=== PATIENT | male | born 1960 | race Caucasian/White ===

== ENCOUNTER 2016-03-18 08:44 | Inpatient (IN) ==
[2016-03-18] MEDS ORDERED: Ipratropium/Albuterol Neb 3 ML ONE (09:02)
[2016-03-18] MEDS ORDERED: 0.9 % Sodium Chloride 1,000 ML IVC ONE (09:04)
[2016-03-18] MEDS ORDERED: methylPREDNISolone 125 MG/2 ML VIAL IVP ONE (09:04)
[2016-03-18] MEDS ORDERED: Famotidine 20 MG/2 ML VIAL IVP ONE (09:04)
[2016-03-18] MEDS ORDERED: *HR* EPINEPHrine 1 MG/ML AMPUL IM ONE (09:04)
--- NOTE | 2016-03-18 09:13 | Emergency Department Note ---
Disposition Clinical Impression: Acute kidney injury Angioedema Qualifiers: Encounter type: initial encounter Qualified Code(s): T78.3XXA - Angioneurotic edema, initial encounter Disposition: Admitted As Inpatient Condition: Fair Referrals: NO,PCP [Non-Partnered Physician] - Forms: ED Satisfaction Letter Time of Disposition: 10:46 Allergic Reaction HPI - General Chief complaint: ED Allergic Reaction Stated complaint: Allergic reaction, red / swelling Time Seen by Provider: 03/18/16 08:49 Source: patient Mode of arrival: ambulatory Limitations: no limitations Nursing Notes Reviewed: Yes Vital Signs Reviewed: Yes - History of Present Illness HPI Narrative: 55-year-old male presents to emergency department for a chief complaint of a "allergic reaction". He states that 5 days ago, he noticed a vague and diffuse rash that was pruritic in nature. He states this rash rest and severity quickly. He visited his [facility] provider on 03/16/16 and was prescribed a prednisone taper as well as Keflex for an unknown reason. He states he has had only modest improvement in the rash itself, however now he states that his lips are swelling, as well as he is experiencing intermittent episodes of shortness of breath. He denies any chest pain or fevers. He does admit to being slightly nauseated. He denies any abdominal pain, vomiting, diarrhea. He denies the introduction of any new medications other than the steroid in the Keflex that was given 2 days ago. He denies the ingestion of any new or foreign foods. He denies the use of any new detergents, clothes, fabric softeners, etc. He denies introduction of any new household pets. He denies any recent foreign travel. He states that when the rash first appeared, he had profuse swelling of his extremities, primarily his hands. He states this has somewhat improved, although he still appears edematous upon exam. Pt Subjective Complaint: allergic reaction, hives Onset (ago): day(s) (5) Exposure: unknown Symptoms: Reports: rash, itching, difficulty breathing, dizziness, nausea, other (lips swelling). Denies: difficulty swallowing, tongue swelling, vomiting , abdominal pain Severity: moderate Treatment prior to arrival: steroids Previous Allergic Reaction History: none - Related Data Home Medications Medication Instructions Recorded Confirmed Aspirin 81 mg PO DAILY 03/18/16 03/18/16 Atorvastatin 20 mg PO DAILY 03/18/16 03/18/16 Buspirone HCl 15 mg PO DAILY 03/18/16 03/18/16 Centrum Ultra Men's Tablet 1 tab PO DAILY 03/18/16 03/18/16 Finasteride 5 mg PO DAILY 03/18/16 03/18/16 Lisinopril-HCTZ 20-12.5 2 tab PO DAILY 03/18/16 03/18/16 Metamucil 6 tab PO DAILY 03/18/16 03/18/16 Paroxetine 25 mg PO BID 03/18/16 03/18/16 Pramipexole 25 mg PO DAILY 03/18/16 03/18/16 Prilosec Otc 20.6 mg PO DAILY 03/18/16 03/18/16 Tamsulosin HCl 0.4 mg PO DAILY 03/18/16 03/18/16 Allergies Allergy/AdvReac Type Severity Reaction Status Date / Time No Known Allergies Allergy Verified 03/18/16 10:52 All systems ED: reviewed and negative except as stated. Constitutional: Denies: fever, chills, weakness, weight change Cardiovascular: Denies: chest pain, palpitations, dyspnea on exertion, edema, syncope Respiratory: Reports: as per HPI, dyspnea. Denies: cough, wheezes, hemoptysis, stridor, sputum production Gastrointestinal: Reports: as per HPI, nausea. Denies: abdominal pain, vomiting , diarrhea, constipation, hematemesis, melena, hematochezia Musculoskeletal: Denies: back pain, neck pain, arthralgia, myalgia Integumentary: Reports: as per HPI, rash. Denies: abrasion, lesions, change in hair/nails, pruritus, breast mass, nipple discharge Neurological: Denies: headache, weakness, numbness, paresthesias, confusion, abnormal gait, vertigo Psychiatric: Denies: anxiety, depression, suicidal thoughts, homicidal thoughts , auditory hallucinations, visual hallucinations Endocrine: Denies: fatigue Hematological/Lymphatic: Denies: easy bleeding, easy bruising Allergic/Immunologic: Reports: as per HPI, urticaria Past Medical History - Past Medical History Attestation: Yes The following information was validated with the patient. Source: patient Medical history: Reports: GERD Psychiatric history: Reports: depression - Social History Smoking Status: Never smoker Smokeless Tobacco Status: No Alcohol use: Reports: rarely Drug use: Reports: none Physical Exam - General Limitations: no limitations General appearance: alert - Head Head exam: atraumatic, normocephalic, normal inspection - Eye Eye exam: Present: normal appearance, PERRL, EOMI. Absent: nystagmus - ENT ENT exam: mucous membranes moist - Expanded ENT Exam Mouth exam: Present: lip swelling, tounge swelling. Absent: drooling, trismus Throat exam: Present: normal inspection. Absent: tonsillomegaly, muffled voice - Neck Neck exam: Present: normal inspection, full ROM, trachea midline. Absent: lymphadenopathy - Chest Chest inspection: Present: normal inspection, symmetric chest wall rise, rash ( See below) - Respiratory Respiratory exam: Present: normal lung sounds bilaterally. Absent: respiratory distress, wheezes, stridor, accessory muscle use, prolonged expiratory phase - Cardiovascular Cardiovascular exam: Present: regular rate, normal rhythm, normal heart sounds - Abdominal Exam Abdominal exam: Present: soft, Non-Tender, normal bowel sounds. Absent: tenderness, distention, guarding, rebound, rigidity - Extremities Exam Extremities exam: Present: normal inspection, full ROM. Absent: tenderness, pedal edema - Neurological Exam Neurological exam: Present: alert, oriented X3 - Psychiatric Psychiatric exam: Present: normal affect, normal mood - Skin Skin exam: Present: warm, dry, intact, normal color, rash. Absent: cyanosis, diaphoresis, erythema, pallor, mottled - Expanded Skin Exam Type of lesion: Present: rash Distribution: generalized (Generalized rash that is maculopapular/urticarial in nature. The rash is erythematous. There is no sloughing. There is no vesicles. The rash spares the palms of the hands and the oral/buccal mucosa. ) Course Course Narrative: We will administer IV fluids, IM epinephrine, breathing treatment, IV Solu- Medrol, IV Benadryl, IV Pepcid, and reevaluate. I discussed this patient's case with Dr. Trammell. Dr. Wilson recommends admission to the hospitalist service after consultation with nephrology for acute kidney injury and angioedema. 1016: I spoke with Dr. Ernst, nephrology on-call. He recommends a urinalysis, urine eosinophils, and renal ultrasound. 1030: At this time, I am awaiting a callback from the hospitalist for probable admission to the hospitalist service. I have discussed this plan with the patient and the patient is in agreement. - Reevaluation(s) Reevaluation #1: Patient is resting in bed comfortably at this time. The patient states that he has had a moderate improvement in symptoms after the administration of medication. I have notified the patient is our plan to observe him for an unknown length of time to monitor for symptomatic improvement/devolution. Time: 10:04 Vital Signs Temperature 99.1 F 03/18/16 08:51 Pulse Rate 126 03/18/16 08:51 Respiratory Rate 26 03/18/16 08:51 Blood Pressure 154/134 03/18/16 08:51 O2 Sat by Pulse Oximetry 98 03/18/16 08:51 Temperature 99.1 F 03/18/16 08:51 Pulse Rate 115 03/18/16 10:40 Respiratory Rate 18 03/18/16 10:40 Blood Pressure 119/96 03/18/16 10:40 O2 Sat by Pulse Oximetry 99 03/18/16 10:40 Oxygen Delivery Oxygen Delivery Nasal Cannula Allergic Reaction - MDM Narrative Medical decision making narrative: I examined this patient and my medical decision-making was reviewed with the BEHAVIORAL HEALTH TECHNICIAN/PA/Advanced Practice Nurse/Resident Physician. I agree with the documented findings, disposition and treatment plan as described except to the extent set forth below. Patient was evaluated mid-level could Ryan and myself. I agree with his evaluation plans were placed in the patient's stay. Patient' s been evaluated scrubs allergic reaction summits bone on for more than 2 weeks he said denies any medicines contacts or chemicals. During his workup here he is feeling better after getting steroids and antihistamines. On noting his labs renal insufficiency elevated white count we do not have the differential back at work to speak with nephrology and think we will bring him in the hospital with some counseling. Impressions allergic reaction uncertain etiology leukocytosis and acute renal insufficiency. 1000 hrs.: Spoke with nephrology they are agreeing to see him. Asked to get a urinalysis urine eosinophils and ultrasound the kidneys. Patient's screening to admission. We also found out the patient is on blood pressure medicines RAYSHAWN inhibitor and hydrochlorothiazide so that may be one of the reasons for this also. - Medical Records Medical records reviewed: Yes I reviewed the patient's medical records. - Lab Data Lab results reviewed: Yes I reviewed the patient's lab results. Lab results narrative: Laboratory Last Values WBC 21.9 K/mcL (4.3-11.1) H 03/18/16 09:30 RBC 4.89 M/mcL (4.19-5.50) 03/18/16 09:30 Hgb 14.2 g/dL (12.9-16.9) 03/18/16 09:30 Hct 42.8 % (37.5-50.1) 03/18/16 09:30 MCV 87.5 fL (83.0-100.0) 03/18/16 09:30 MCH 29.0 pg (28.0-33.3) 03/18/16 09:30 MCHC 33.2 g/dL (31.6-35.5) 03/18/16 09:30 RDW 14.6 % (11.5-14.5) H 03/18/16 09:30 Plt Count 314 K/mcL (140-400) 03/18/16 09:30 MPV 10.0 fL (9.4-12.4) 03/18/16 09:30 Immature Gran % 1.3 % (0-4) 03/18/16 09:30 Seg Neutrophils % 45.3 % 03/18/16 09:30 Lymphocytes % 50.3 % 03/18/16 09:30 Monocytes % 2.6 % 03/18/16 09:30 Eosinophils % 0.3 % 03/18/16 09:30 Basophils % 0.2 % 03/18/16 09:30 Neutrophils # 9.9 K/mcL (1.6-8.9) H 03/18/16 09:30 Lymphocytes # 11.0 K/mcL (0.6-4.6) H 03/18/16 09:30 Monocytes # 0.6 K/mcL (0.0-1.3) 03/18/16 09:30 Eosinophils # 0.1 K/mcL (0.0-0.6) 03/18/16 09:30 Basophils # 0.0 K/mcL (0.0-0.2) 03/18/16 09:30 Smudge Cells Present (Not Present) A 03/18/16 09:30 Platelet Estimate Normal (Normal) 03/18/16 09:30 Immature Plt Fraction 3.5 % (1.1-6.1) 03/18/16 09:30 Sodium 131 mEq/L (136-145) L 03/18/16 09:30 Potassium 4.1 mEq/L (3.5-4.5) 03/18/16 09:30 Chloride 101 mEq/L (98-109) 03/18/16 09:30 Carbon Dioxide 15 mEq/L (19-29) L 03/18/16 09:30 BUN 40 mg/dL (8-26) H 03/18/16 09:30 Creatinine 2.56 mg/dL (0.72-1.25) H 03/18/16 09:30 Est GFR ( Amer) 32 (> 60) L 03/18/16 09:30 Est GFR (Non-Af Amer) 26 (> 60) L 03/18/16 09:30 BUN/Creatinine Ratio 16 (6-26) 03/18/16 09:30 Glucose 121 mg/dL (70-99) H 03/18/16 09:30 Calculated Osmolality 283 (280-300) 03/18/16 09:30 Calcium 8.7 mg/dL (8.6-10.8) 03/18/16 09:30 Result diagrams: 03/18/16 09:30 03/18/16 09:30 Lab Results 03/18/16 03/18/16 03/18/16 Range/Units 09:30 09:30 10:25 WBC 21.9 H (4.3-11.1) K/mcL RBC 4.89 (4.19-5.50) M/mcL Hgb 14.2 (12.9-16.9) g/dL Hct 42.8 (37.5-50.1) % MCV 87.5 (83.0-100.0) fL MCH 29.0 (28.0-33.3) pg MCHC 33.2 (31.6-35.5) g/dL RDW 14.6 H (11.5-14.5) % Plt Count 314 (140-400) K/mcL MPV 10.0 (9.4-12.4) fL Immature Gran % 1.3 (0-4) % Seg Neutrophils % 45.3 % Lymphocytes % 50.3 % Monocytes % 2.6 % Eosinophils % 0.3 % Basophils % 0.2 % Neutrophils # 9.9 H (1.6-8.9) K/mcL Lymphocytes # 11.0 H (0.6-4.6) K/mcL Monocytes # 0.6 (0.0-1.3) K/mcL Eosinophils # 0.1 (0.0-0.6) K/mcL Basophils # 0.0 (0.0-0.2) K/mcL Smudge Cells Present A (Not Present) Platelet Estimate Normal (Normal) Immature Plt Fraction 3.5 (1.1-6.1) % Sodium 131 L (136-145) mEq/L Potassium 4.1 (3.5-4.5) mEq/L Chloride 101 (98-109) mEq/L Carbon Dioxide 15 L (19-29) mEq/L BUN 40 H (8-26) mg/dL Creatinine 2.56 H (0.72-1.25) mg/dL Est GFR ( Amer) 32 L (> 60) Est GFR (Non-Af Amer) 26 L (> 60) BUN/Creatinine Ratio 16 (6-26) Glucose 121 H (70-99) mg/dL Calculated Osmolality 283 (280-300) Calcium 8.7 (8.6-10.8) mg/dL Urine Color Yellow (Yellow) Urine Clarity Clear (Clear) Urine pH 6.0 (5.0-8.0) pH Units Ur Specific [place] 1.020 (1.010-1.025) Urine Protein 30 H (Neg-Trace) mg/dL Urine Glucose (UA) Normal (Normal) mg/dL Urine Ketones Negative (Negative) mg/dL Urine Blood Negative (Negative) Urine Nitrite Negative (Negative) Urine Bilirubin Negative (Negative) Urine Urobilinogen Normal (Normal) mg/dL Ur Leukocyte Esterase Small H (Negative) Urine Microscopic RBC 5-15 H (0-3) per hpf Urine Microscopic WBC 5-15 H (0-3) per hpf Ur Squamous Epith Cells Many H (None-Few) per lpf Urine Bacteria None Seen (None-Few) per hpf Hyaline Casts Few (None-Few) per lpf Ur Culture Indicated? YES A (NO) - Radiology Data Radiology results reviewed: Yes I reviewed the patient's radiology results. Chest X-Ray 03/18/16 09:09 IMPRESSION: No evidence of acute disease. D/ / Richard Henson MD / Richard Henson MD Interpreting Provider: Richard Henson MD - EKG Data EKG attestation: Yes I reviewed and interpreted this EKG. EKG results narrative: EKG reviewed by Dr. Trammell as well. EKG shows a sinus tachycardia at a rate of 110 bpm with nonspecific T-wave abnormalities. No STEMI. EKG shows normal: sinus rhythm Rate: tachycardia Rhythm: NSR
[2016-03-18 09:37] LABS: Eosinophils % 0.3 %; Mean Corpuscular HGB Conc 33.2 g/dL (31.6-35.5); Red Cell Distribution Width 14.6 % (11.5-14.5)
[2016-03-18 09:44] LABS: Basophils % 0.2 %; Eosinophils # 0.1 K/mcL (0.0-0.6); Hematocrit 42.8 % (37.5-50.1); Hemoglobin 14.2 g/dL (12.9-16.9); Immature Granulocytes % 1.3 % (0-4); Immature Platelets 3.5 % (1.1-6.1); Lymphocytes % 50.3 %; Mean Corpuscular Volume 87.5 fL (83.0-100.0); Monocytes # 0.6 K/mcL (0.0-1.3); Monocytes % 2.6 %; Neutrophils # 9.9 K/mcL (1.6-8.9); Platelet Count 314 K/mcL (140-400); Red Blood Count 4.89 M/mcL (4.19-5.50); Segmented Neutrophils % 45.3 %
[2016-03-18 09:56] LABS: Calcium 8.7 mg/dL (8.6-10.8); Potassium 4.1 mEq/L (3.5-4.5)
[2016-03-18 10:10] LABS: Platelet Estimate Normal (Normal); Smudge Cells Present (Not Present)
[2016-03-18 10:43] LABS: Bilirubin,Urine Negative (Negative); Blood,Urine Negative (Negative); Clarity,Urine Clear (Clear); Color,Urine Yellow (Yellow); Glucose,Urine (UA) Normal (Normal); Ketones,Urine Negative (Negative); Leukocyte Esterase,Urine Small (Negative); Nitrite,Urine Negative (Negative); Protein,Urine 30 mg/dL (Neg-Trace); Urobilinogen,Urine Normal (Normal)
[2016-03-18 10:48] LABS: Bacteria,Urine None Seen per hpf (None-Few); Hyaline Casts,Urine Few per lpf (None-Few); Squamous Epithelial Cell,Urine Many per lpf (None-Few)
[2016-03-18] MEDS ORDERED: Acetaminophen 325 MG TABLET PO PRN (11:36)
[2016-03-18] MEDS ORDERED: Naloxone 0.4 MG/ML INJ IVP PRN (11:36)
[2016-03-18] MEDS ORDERED: 0.9 % Sodium Chloride 1,000 ML IVC SCH (11:45)
--- NOTE | 2016-03-18 13:08 | Internal Med History&Physical ---
Date of Encounter: 03/18/16 Time of Encounter: 12:00 Assessment and Plan (1) Angioedema Current visit: Yes Status: Acute 1 patient presented with sudden onset of facial and lip swelling. The patient is on RAYSHAWN inhibitor as well as Finasteride, Tamsulosin which can cause angioedema. We will hold these medications for now 2 we will give oxygen as needed to maintain SPO2 grade 92% 3 we will continue with Solu-Medrol 60 mg every 6 hours IV as well as Pepcid and Benadryl when necessary 4 continuous SPO2 monitoring (2) Hives of unknown origin Current visit: Yes Status: Acute 1 sudden onset of Uticaria -we will continue with Benadryl and steroids and Pepcid (3) Acute kidney injury Current visit: Yes Status: Acute 1 patient's creatinine is 2.12 which is up from January when 1.43 looks like baseline is around 1-1.12. We will continue to monitor creatinine. Suspect this may be related to use of lisinopril-patient denies any NSAID use . We will hold lisinopril and hydrochlorothiazide for now we will hydrate with IV fluids. Consult nephrology obtain renal ultrasound as well as urine eosinophils. 2 avoid nephrotoxins no NSAIDs 3 monitor intake and output (4) Metabolic acidosis Current visit: Yes Status: Acute 1 suspect renal tubular acidosis secondary to medication. Bicarbonate presently 15, will obtain venous blood gas check PTH if less than 7.3 we will give bicarbonate. 2 we will continue to monitor Chem-7 (5) Hypertension Current visit: Yes Status: Acute 1 presently controlled we will hold lisinopril like hydrochlorothiazide due to SONU K MrKwame when necessary hydralazine for blood pressure greater than 180 Qualifiers: Hypertension type: essential hypertension Qualified Code(s): I10 - Essential (primary) hypertension (6) FRIDA (obstructive sleep apnea) Current visit: Yes Status: Acute We will continue with CPAP at home settings (7) DVT prophylaxis Current visit: Yes Status: Acute 1. Heparin subcutaneous Internal Medicine - H&P: HPI Chief complaint: Allergic reaction Admitted From: Home Plans for Post Hospital Care: Home History of present illness: Mr. Pearce is a 55 year old male with past medical history of hypertension and FRIDA GERD. According to the patient on Tuesday he noticed a vague diffuse red rash that was pruritic. The rash covered his extremities. By Tuesday he noticed that his hands and arms were swollen. This continued until Tuesday when he went to go see his physician and he was given a steroid shot as well as a prednisone taper. He was advised to follow-up with his PCP. Tuesday he visited his PCP who prescribed him Keflex. He only noticed a modest improvement in the rash uticara and swelling mostly in his hands. He used OTC Benadryl to help her symptoms. Last night the patient noticed that his lips were swelling and at times he did experience intermittent episodes of shortness of breath. He does use CPAP at night which he states did help with his breathing. He denies any wheezing chest pains fevers abdomen pain vomiting or diarrhea however he has been slightly nauseated. He denies any introduction of new medications other than the steroid and the Keflex that was given 2 days ago. He denies any ingestion of new foods. He denies any use of new laundry detergents or clothes fabric softeners or soaps or shampoos hygiene products. He denies any new exposures to animals or pets. He denies any recent travel. He presented to the ER today with the above described complaints. ER records indicated the patient had swelling around his face and lips. Redness and hives covering upper and lower extremities as well as back and neck. The patient was maintaining his airway SPO2 is 99% on room air chest x-ray revealed no evidence of acute disease EKG sinus tachycardia with nonspecific T-wave abnormalities. Lab work revealed elevated white count at 21.9 sodium was 131 creatinine 2.56 BUN 40 patient was given Solu-Medrol IV Pepcid and Benadryl . ER physician did speak with nephrology concerning SONU requested urine eosiphils and ultrasound kidneys. He has been admitted for further workup and evaluation. Presently patient does not appear to be in any respiratory distress. He is maintaining his airway trachea is midline he does have muffled voice no drooling noted. When questioned about renal status he states that times his numbers are elevated and he checks it every 6 months and he comes back down. He denies any NSAID use, however admits that he has not been drinking very well over the past few days. At present time he denies any chest pain or shortness of breath he does complain of some uticaria to extremities. At present time he is hemodynamically stable. I reviewed the case with Dr Chakraborty who agrees with the plan Past Med Surg Social Fam HX - Past Medical History Medical history: GERD Psychiatric history: depression - Social History Smoking Status: Never smoker Smokeless Tobacco Status: No Alcohol use: rarely Drug use: none - Family History Mother Name: vel Age: 93 Living Status: Still Living Hx Family Cardiac Disorders: Yes Hx Family Respiratory Disorders: No Hx Family Cancer: Yes Hx Family Endocrine Disorder: Yes Internal Medicine - H&P: Meds Aspirin 81 mg PO DAILY 03/18/16 [History] Atorvastatin Calcium [Lipitor] 20 mg PO DAILY 03/18/16 [History] Buspirone HCl [Buspar] 15 mg PO DAILY 03/18/16 [History] Finasteride [Proscar] 5 mg PO DAILY 03/18/16 [History] Lisinopril/Hydrochlorothiazide [Zestoretic 20-12.5 mg Tablet] 1 each PO DAILY [History] Multivits,Ca,Min/Iron/FA/Lycop [Centrum Ultra Men's Tablet] 1 each PO DAILY [History] Omeprazole Magnesium [Prilosec Otc] 20 mg PO DAILY 03/18/16 [History] Paroxetine HCl [Paroxetine Cr] 50 mg PO DAILY 03/18/16 [History] Pramipexole [Mirapex] 0.25 mg PO DAILY 03/18/16 [History] Psyllium Husk [Metamucil] 3.12 gm PO DAILY 03/18/16 [History] Tamsulosin [Flomax] 0.4 mg PO DAILY 03/18/16 [History] Allergies No Known Allergies Allergy (Verified 03/18/16 10:52) All Systems PM: A 10-system review of systems was performed and is negative for pertinent findings except as documented above in the HPI. - Constitutional Constitutional: anorexia - EENT Nose, mouth and throat: change in voice, lip swelling - Cardiovascular Cardiovascular ROS IM: no chest pain, no diaphoresis, no dyspnea, no lightheadedness, no palpitations, no syncope - Respiratory Respiratory: no cough, no dyspnea, no wheezing, no excessive phlegm production - Gastrointestinal Gastrointestinal: no abdominal pain, no diarrhea, no hematemesis, no hematochezia, no melena, no nausea, no vomiting - Musculoskeletal Musculoskeletal ROS IM: no numbness, no tingling - Integumentary Integumentary IM: no rash, no unusual bruising - Neurological Neurological ROS: no confusion, no convulsions, no focal weakness, no numbness, no tingling, no tremor(s) - Hematologic/Lymphatic Hematologic/Lymphatic: no easy bruising - Allergic/Immunologic Allergic/Immunologic: uticaria, lip swelling - Constitutional Vitals: Temp Pulse Resp BP Pulse Ox 97.8 F 93 16 109/75 95 03/18/16 12:13 03/18/16 12:13 03/18/16 12:13 03/18/16 12:13 03/18/16 12:13 General appearance: Present: A&O X 3, answers questions appropriately - Head Head exam: Present: atraumatic, normocephalic - Eye Eye exam: Present: periorbital swelling, PERRL, conjuntiva pink, sclera anicteric Pupils: Present: PERRL - Expanded ENT Exam Mouth exam: Present: muffled voice - Neck Neck exam general surgery: Present: supple, trachea midline. Absent: lymphadenopathy Additional comments: Lip swelling - Respiratory Respiratory exam: Present: CTAB. Absent: accessory muscle use, rales, rhonchi, wheezes - Cardiovascular Cardiovascular exam: Present: RRR, +S1, +S2. Absent: diastolic murmur, gallop, rubs, systolic murmur - GI/Abdominal GI/Abdominal exam: Present: normal bowel sounds, soft, no peritoneal signs. Absent: distended, tenderness - Extremities Exam Extremities exam: Present: warm, radial pulses palpable and symetrical. Absent : calf tenderness, cyanotic, pedal edema - Neurological Exam Neurological exam: Present: CN II-XII intact, oriented X3, no focal deficits. Absent: pronater drift, facial droop, speech deficit - Skin Skin exam: Present: dry, erythema, intact, rash, urticaria - Expanded Skin Exam Type of lesion: Present: rash Distribution of rash: Present: LUE, RUE, RLE, LLE Description of rash: Present: urticarial Internal Med - H&P Results - Labs CBC & Chem 7: 03/18/16 09:30 03/18/16 09:30 - EKG Data EKG shows normal: sinus rhythm Rate: tachycardia - EKG Data Prior EKG available for review: no Interpretation IM: normal EKG - Diagnostic Studies Chest x-ray Additional comments: Pertinent radiology read no acute process
[2016-03-18] MEDS: methylPREDNISolone 125 MG/2 ML VIAL IVP SCH ×2 (13:40→20:23)
[2016-03-18 14:07] LABS: VBG HCO3 20.4 mEq/L (21-27); VBG PH 7.4 pH Units (7.32-7.42)
[2016-03-18] MEDS: Famotidine 20 MG/2 ML VIAL IVP SCH (16:50)
[2016-03-18] MEDS: *HR* Heparin 5,000 UNIT/ML VIAL SQ SCH (16:51)
[2016-03-18 20:43] LABS: Calcium 8.6 mg/dL (8.6-10.8); Potassium 4.1 mEq/L (3.5-4.5)
[2016-03-18] MEDS: 0.9 % Sodium Chloride 1,000 ML IVC SCH (23:27)
[2016-03-19] MEDS: methylPREDNISolone 125 MG/2 ML VIAL IVP SCH ×2 (03:15→09:06)
[2016-03-19 04:09] LABS: Basophils % 0.1 %; Hematocrit 36.1 % (37.5-50.1); Immature Granulocytes % 0.7 % (0-4); Lymphocytes # 6.9 K/mcL (0.6-4.6); Lymphocytes % 43.9 %; Mean Corpuscular HGB Conc 33.2 g/dL (31.6-35.5); Mean Corpuscular Hemoglobin 29.6 pg (28.0-33.3); Mean Corpuscular Volume 88.9 fL (83.0-100.0); Mean Platelet Volume 10.3 fL (9.4-12.4); Monocytes # 0.5 K/mcL (0.0-1.3); Monocytes % 3.4 %; Neutrophils # 8.2 K/mcL (1.6-8.9); Platelet Count 198 K/mcL (140-400); Red Blood Count 4.06 M/mcL (4.19-5.50); Red Cell Distribution Width 14.7 % (11.5-14.5); Segmented Neutrophils % 51.9 %
[2016-03-19 04:14] LABS: BUN/Creatinine Ratio 22 (6-26); Blood Urea Nitrogen 32 mg/dL (8-26); Calcium 8.7 mg/dL (8.6-10.8); Carbon Dioxide 20 mEq/L (19-29); Chloride 108 mEq/L (98-109); Glucose 166 mg/dL (70-99); Magnesium 1.9 mg/dL (1.6-2.6); Osmolality,Calculated 297 (280-300); Phosphorous 2.7 mg/dL (2.3-4.7); Potassium 4.1 mEq/L (3.5-4.5); Sodium 138 mEq/L (136-145); eGFR For African Americans > 60 (> 60); eGFR For Non-African Americans 51 (> 60)
[2016-03-19] MEDS: *HR* Heparin 5,000 UNIT/ML VIAL SQ SCH ×2 (05:42→17:27)
[2016-03-19] MEDS: Famotidine 20 MG/2 ML VIAL IVP SCH ×2 (05:42→17:27)
--- NOTE | 2016-03-19 08:33 | Nephrology Consult Note ---
Date of Encounter: 03/19/16 Time of Encounter: 08:31 Assessment and Plan (1) Acute kidney injury Current Visit: Yes Status: Acute Patient has acute kidney injury in the setting of an obvious allergic reaction with associated angioedema. I suspect that he has developed an allergy to his lisinopril. I informed him that he should never take an RAYSHAWN inhibitor again. Currently he is off the RAYSHAWN inhibitor. He is receiving IV steroids and he seems to be improving. In addition his renal function is improving with administration of IV fluids. He may have an associated allergic interstitial nephritis although the urine eosinophils were negative. At this point time his renal function is improving and is on appropriate treatment for his allergic reaction. We will simply continue to monitor his renal function. I suspect he should continue to improve. Renal ultrasound was unremarkable with the exception of a possible lesion involving the left kidney. This will need to be followed up with a CAT scan preferably with contrast once his renal function improves. (2) Angioedema Current Visit: Yes Status: Acute Qualifiers: Encounter type: initial encounter Qualified Code(s): T78.3XXA - Angioneurotic edema, initial encounter (3) Hypertension Current Visit: Yes Status: Acute Qualifiers: Hypertension type: essential hypertension Qualified Code(s): I10 - Essential (primary) hypertension History of Present Illness - History of Present Illness This is a 55-year-old male who presented to the emergency room yesterday with complaints of a pruritic rash. Patient was noted to have an elevated creatinine of 2.56. He denies any previous history of renal disease other than renal stones back in 1989. Patient reports that several days ago he developed itching of the palms of his hands. The next day he noticed a red rash advancing up his arms. Subsequently he went for medical appointments for evaluation of sleep apnea. He was given a shot of steroids and placed on prednisone. Despite that the rash continued to worsen. The rash was pruritic and gradually involved all of his extremities and upper portion of his back. On morning the patient noticed that his lips were swollen. He also was experiencing some exertional dyspnea. That prompted him to come to the emergency room. Prior to that he had seen his family doctor and was prescribed Keflex. Because of the elevated creatinine level the patient was admitted to the hospital. Patient has been on lisinopril for several years for treatment of hypertension. He took Aleve on 2 occasions recently. He denies any other new medications other than being recently placed on prednisone and Keflex after his rash developed. Past Med Surg Social Fam HX - Past Medical History Medical history: GERD Psychiatric history: depression - Social History Smoking Status: Never smoker Smokeless Tobacco Status: No Alcohol use: rarely Drug use: none - Family History Mother Name: vel Age: 93 Living Status: Still Living Hx Family Cardiac Disorders: Yes Hx Family Respiratory Disorders: No Hx Family Cancer: Yes Hx Family Endocrine Disorder: Yes Medications and Allergies Aspirin 81 mg PO DAILY 03/18/16 [History] Atorvastatin Calcium [Lipitor] 20 mg PO DAILY 03/18/16 [History] Buspirone HCl [Buspar] 15 mg PO DAILY 03/18/16 [History] Finasteride [Proscar] 5 mg PO DAILY 03/18/16 [History] Lisinopril/Hydrochlorothiazide [Zestoretic 20-12.5 mg Tablet] 1 each PO DAILY [History] Multivits,Ca,Min/Iron/FA/Lycop [Centrum Ultra Men's Tablet] 1 each PO DAILY [History] Omeprazole Magnesium [Prilosec Otc] 20 mg PO DAILY 03/18/16 [History] Paroxetine HCl [Paroxetine Cr] 50 mg PO DAILY 03/18/16 [History] Pramipexole [Mirapex] 0.25 mg PO DAILY 03/18/16 [History] Psyllium Husk [Metamucil] 3.12 gm PO DAILY 03/18/16 [History] Tamsulosin [Flomax] 0.4 mg PO DAILY 03/18/16 [History] Allergies No Known Allergies Allergy (Verified 03/18/16 10:52) Review of Systems Constitutional: as per HPI Eyes: bilateral: blurred vision (patient denies), diplopia (patient denies) Nose, mouth and throat: other (swollen lips and tongue) Cardiovascular: dyspnea on exertion, no chest pain, no palpitations Respiratory: dyspnea on exertion Gastrointestinal: no abdominal pain, no change in bowel habits Musculoskeletal: no muscle weakness, no numbness Integumentary: pruritus, rash, no hirsutism, no striae Neurological: as per HPI Psychiatric: no depression, no difficulty concentrating Endocrine: as per HPI Hematologic/Lymphatic: no easy bruising, no lymphadenopathy Allergic/Immunologic: as per HPI, tongue swelling, seasonal rhinorrhea, lip swelling Exam - Vital Signs Vital signs: Initial Vital Signs Temp Pulse Resp BP Pulse Ox 99.1 F 126 26 154/134 98 03/18/16 08:51 03/18/16 08:51 03/18/16 08:51 03/18/16 08:51 03/18/16 08:51 Vital Signs - Last 8 Hours Temp Pulse Resp BP Pulse Ox 03/19/16 07:44 68 20 113/74 95 03/19/16 04:11 98.1 F 74 14 115/83 95 Intake and Output 03/18/16 03/19/16 03/19/16 23:59 07:59 15:59 Intake Total 1360 / 1360 240 / 240 Output Total 1050 / 1050 950 / 950 Balance 310 / 310 -950 / -950 240 / 240 Intake: IV Fluids 1000 / 1000 0.9 % Sodium Chloride 1, 1000 / 1000 000 ML @ 100 mls/hr IVC . Q10H DEBORAH Rx#:[id number] Oral 360 / 360 240 / 240 Output: Urine 1050 / 1050 950 / 950 Other: Weight 106 kg 106 kg Patient Weight 03/19/16 23:59 Weight 106 kg - General Appearance Exam: The patient is alert and oriented. He is in no acute distress. Neck is supple. Carotids show no bruits. Lungs clear to auscultation. No wheezing rales or rhonchi. Heart regular rate and rhythm without any murmur or S3-S4 gallops clicks or rubs. Abdomen is obese. Small umbilical hernia is noted. No tenderness masses or organomegaly. Extremities show no peripheral edema. Skin exam shows faint erythematous rash involving all of the extremities. The lower extremities are primarily involved in the thigh areas. There is also a rash involving the upper portion of the back with radiation to the axilla. The lips appear somewhat swollen. Results - Lab Results 03/19/16 03:19 03/19/16 03:19 Most recent lab results Calcium 8.7 mg/dL (8.6-10.8) 03/19/16 03:19 Phosphorus 2.7 mg/dL (2.3-4.7) 03/19/16 03:19 Magnesium 1.9 mg/dL (1.6-2.6) 03/19/16 03:19 Consult Discharge Plan - Plan Referrals: Mary Kate Fan MD [Primary Care Provider] -
[2016-03-19] MEDS: Aspirin 81 MG TAB.CHEW PO SCH (09:06)
[2016-03-19] MEDS: Psyllium 1 PACKET POWD.PACK PO SCH (09:09)
--- NOTE | 2016-03-19 09:31 | Internal Med Progress Note ---
<Korey Pulliam - Last Filed: 03/19/16 09:21> Date of Encounter: 03/19/16 Time of Encounter: 09:21 - Assessment and plan (1) Angioedema Current Visit: Yes Status: Acute Assessment and plan: Patient presented with sudden acute onset of facial and lip swelling. Suspected cause is Lisinopril and it has been discontinued. Prior to admission, patient was on Prednisone 60 mg TID of rash, but had not been taking it 2 days prior to admission. Swelling has dissipated and rash is greatly improved. Will discontinue IV Solu- medrol today and being prednisone 40 mg PO BID Qualifiers: Encounter type: initial encounter Qualified Code(s): T78.3XXA - Angioneurotic edema, initial encounter (2) Hives of unknown origin Current Visit: Yes Status: Acute Assessment and plan: Sudden on of Uticaria - Suspected reaction to Lisiniproil/HCTZ Will continue benadryl DC IV Solu-medrol, Start PO prednisone (3) Acute kidney injury Current Visit: Yes Status: Acute Assessment and plan: Creatinine is down to 1.45 from a high of 2.4 since discontinuing Lisinopril/ HCTZ Nephrology was consulted (4) Hypertension Current Visit: Yes Status: Acute Assessment and plan: Presently controlled. We will hold lisinopril like hydrochlorothiazide due to SONU K Mr. when necessary hydralazine for blood pressure greater than 180 Qualifiers: Hypertension type: essential hypertension Qualified Code(s): I10 - Essential (primary) hypertension (5) Metabolic acidosis Current Visit: Yes Status: Acute Assessment and plan: Suspect renal tubular acidosis secondary to medication. Bicarbonate presently 1.45, will obtain venous blood gas check PTH if less than 7.3 we will give bicarbonate. Will continue to monitor Chem-7 (6) FRIDA (obstructive sleep apnea) Current Visit: Yes Status: Acute Assessment and plan: Will continue CPAP/Oxyen at home settings (7) DVT prophylaxis Current Visit: Yes Status: Acute Assessment and plan: Heparin 5,000 unit SQ Q12H - Time Spent With Patient less than 15 minutes - Subjective Interval history: Mr. Pearce, a 55 year old male was admitted with a chief complaint of rash/ pruritus and swelling of his extremities as well as swelling of his lips. His creatinine was also elevated at 2.45. He as started on IV solu-medrol and lisinopril/HCTZ was discontinued due to suspicion of angioedema. It has been 24 hours since his last dose of lisinopril/hctz and the swelling in his lips has subsided as well as the majority of the rash on his extremities. Marisol was in to see patient this morning. He states that he's feeling much better and that he feels "10/10" and would be ready to go home. he was counseled on angioedema and told not to take lisinopril or other RAYSHAWN inhibitors any longer. He was concerned about whether he should go to an customer success intern after discharge or not, and was told that unless his symptoms reoccur, it would likely be unnecessary. - Constitutional Vitals: Temp Pulse Resp BP Pulse Ox 98.1 F 68 20 113/74 95 03/19/16 04:11 03/19/16 07:44 03/19/16 07:44 03/19/16 07:44 03/19/16 07:44 General appearance: Present: cooperative, A&O X 3, pleasant, no acute distress, obese, answers questions appropriately - Head Head exam: Present: atraumatic, normal inspection, normocephalic - Eye Eye exam: Present: normal appearance, conjuntiva pink, sclera anicteric - Neck Neck exam general surgery: Present: supple, trachea midline. Absent: lymphadenopathy - Respiratory Respiratory exam: Present: CTAB. Absent: accessory muscle use, rales, rhonchi, wheezes - Cardiovascular Cardiovascular exam: Present: RRR, +S1, +S2. Absent: diastolic murmur, gallop, rubs, systolic murmur - GI/Abdominal GI/Abdominal exam: Present: normal bowel sounds, soft, no peritoneal signs. Absent: distended, tenderness - Extremities Exam Extremities exam: Present: normal capillary refill, warm, radial pulses palpable and symetrical. Absent: calf tenderness, cyanotic, pedal edema - Neurological Exam Neurological exam: Present: CN II-XII intact, oriented X3, no focal deficits. Absent: pronater drift, facial droop, speech deficit - Skin Skin exam: Present: dry, intact, rash (Diffuse, patchy, prutitic, uticaric rash. greatly improved since admission), urticaria (Greatly mproved since admission) Internal Medicine: Result - Labs CBC & Chem 7: 03/19/16 03:19 03/19/16 03:19 Labs: Short CBC 03/19/16 Range/Units 03:19 WBC 15.7 H (4.3-11.1) K/mcL Hgb 12.0 L D (12.9-16.9) g/dL Hct 36.1 L (37.5-50.1) % Plt Count 198 (140-400) K/mcL Neutrophils # 8.2 (1.6-8.9) K/mcL BMP 03/18/16 03/19/16 20:12 03:19 Sodium 134 L 138 Potassium 4.1 4.1 Chloride 104 108 Carbon Dioxide 16 L 20 BUN 37 H 32 H Creatinine 1.70 H 1.45 H Glucose 155 H 166 H Calcium 8.6 8.7 Consult Discharge Plan - Plan Referrals: Mary Kate Fan MD [Primary Care Provider] - 03/26/16 10:20 am <Memo Su - Last Filed: 03/19/16 18:13> Date of Encounter: 03/19/16 - Assessment and plan (1) Angioedema Current Visit: Yes Status: Acute Qualifiers: Encounter type: subsequent encounter Qualified Code(s): T78.3XXD - Angioneurotic edema, subsequent encounter (2) Hives of unknown origin Current Visit: Yes Status: Acute (3) Hypertension Current Visit: Yes Status: Acute Qualifiers: Hypertension type: essential hypertension Qualified Code(s): I10 - Essential (primary) hypertension (4) FRIDA (obstructive sleep apnea) Current Visit: Yes Status: Acute (5) Acute kidney injury Current Visit: Yes Status: Acute - Constitutional Vitals: Temp Pulse Resp BP Pulse Ox 97.8 F 76 15 120/73 96 03/19/16 15:27 03/19/16 15:27 03/19/16 15:27 03/19/16 15:27 03/19/16 15:27 Internal Medicine: Result - Labs CBC & Chem 7: 03/19/16 03:19 03/19/16 03:19 Labs: Short CBC 03/19/16 Range/Units 03:19 WBC 15.7 H (4.3-11.1) K/mcL Hgb 12.0 L D (12.9-16.9) g/dL Hct 36.1 L (37.5-50.1) % Plt Count 198 (140-400) K/mcL Neutrophils # 8.2 (1.6-8.9) K/mcL BMP 03/18/16 03/19/16 20:12 03:19 Sodium 134 L 138 Potassium 4.1 4.1 Chloride 104 108 Carbon Dioxide 16 L 20 BUN 37 H 32 H Creatinine 1.70 H 1.45 H Glucose 155 H 166 H Calcium 8.6 8.7 - Attending Attestation I examined this patient and my medical decision-making was reviewed with the Resident Physician on 03/19/16. I agree with the documented findings, disposition and treatment plan as described except to the extent set forth below. Mr. Pearce is currently admitted for acute angioedema and acute renal failure presumed due to Lisinopril. He remains moderate to high risk due to potential for worsening respiratory and allergic symptoms. Mr. Pearce is feeling somewhat better. He still has rash and facial swelling but is improving. No dyspnea. No dysphagia. Exam Alert. Some swelling of lips noted Skin with erythema on trunk, arms and legs I/P 1.Acute allergic rxn, angioedema - continue steroids 2. HTN Further diagnoses and plan as above.
[2016-03-19] MEDS: 0.9 % Sodium Chloride 1,000 ML IVC SCH ×2 (15:10→22:51)
--- NOTE | 2016-03-19 16:11 | Electrocardiograph Report ---
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
[2016-03-19] MEDS: predniSONE 20 MG TABLET PO SCH (17:26)
[2016-03-20] MEDS ORDERED: MethylPREDNISolone 40 MG/ML VIAL IVP ONE (00:02)
[2016-03-20] MEDS ORDERED: 0.9 % Sodium Chloride 1,000 ML IVC SCH (00:03)
[2016-03-20 05:08] LABS: Basophils % 0.1 %; Hematocrit 35.1 % (37.5-50.1); Hemoglobin 11.4 g/dL (12.9-16.9); Immature Granulocytes % 0.7 % (0-4); Lymphocytes # 5.8 K/mcL (0.6-4.6); Lymphocytes % 28.2 %; Mean Corpuscular HGB Conc 32.5 g/dL (31.6-35.5); Mean Corpuscular Hemoglobin 29.4 pg (28.0-33.3); Mean Corpuscular Volume 90.5 fL (83.0-100.0); Mean Platelet Volume 10.4 fL (9.4-12.4); Neutrophils # 13.5 K/mcL (1.6-8.9); Platelet Count 186 K/mcL (140-400); Red Blood Count 3.88 M/mcL (4.19-5.50); Red Cell Distribution Width 14.9 % (11.5-14.5)
[2016-03-20 05:17] LABS: Alanine Aminotransferase 23 Units/L (0-55); Albumin 2.6 g/dL (3.5-5.0); Albumin/Globulin Ratio 0.8 (1.1-2.2); Alkaline Phosphatase 50 Units/L (38-126); Aspartate Amino Transferase 17 Units/L (5-34); BUN/Creatinine Ratio 21 (6-26); Bilirubin,Total 0.3 mg/dL (0.2-1.2); Blood Urea Nitrogen 26 mg/dL (8-26); Calcium 8.5 mg/dL (8.6-10.8); Carbon Dioxide 19 mEq/L (19-29); Chloride 109 mEq/L (98-109); Globulin 3.1 g/dL (2.4-3.5); Glucose 131 mg/dL (70-99); Osmolality,Calculated 295 (280-300); Potassium 4.2 mEq/L (3.5-4.5); Sodium 139 mEq/L (136-145); Total Protein 5.7 g/dL (6.0-8.3); eGFR For African Americans > 60 (> 60); eGFR For Non-African Americans > 60 (> 60)
[2016-03-20] MEDS: Famotidine 20 MG/2 ML VIAL IVP SCH (05:52)
[2016-03-20] MEDS: *HR* Heparin 5,000 UNIT/ML VIAL SQ SCH (05:52)
--- NOTE | 2016-03-20 08:28 | Event Note ---
Date of Encounter: 03/20/16 Time of Encounter: 08:28 The patient's renal function has returned to normal. Urology will sign off. The patient was reminded to not take shlomo inhibitors again in the future. Please call again if needed.
[2016-03-20] MEDS: Aspirin 81 MG TAB.CHEW PO SCH (08:34)
[2016-03-20] MEDS: predniSONE 20 MG TABLET PO SCH (08:34)
[2016-03-20] MEDS: Psyllium 1 PACKET POWD.PACK PO SCH (08:39)
[2016-03-20 11:07] VITALS: BP 140/96
--- NOTE | 2016-03-20 11:38 | Discharge Summary ---
<Korey Pulliam - Last Filed: 03/20/16 11:28> Date of Encounter: 03/20/16 Time of Encounter: 11:29 - Discharge Diagnosis (1) Angioedema Priority: Primary Status: Acute Qualifiers: Encounter type: subsequent encounter Qualified Code(s): T78.3XXD - Angioneurotic edema, subsequent encounter (2) Hives of unknown origin Priority: Primary Status: Acute (3) Acute kidney injury Priority: Primary Status: Acute (4) Hypertension Priority: Primary Status: Acute Qualifiers: Hypertension type: essential hypertension Qualified Code(s): I10 - Essential (primary) hypertension (5) Metabolic acidosis Priority: Primary Status: Acute (6) FRIDA (obstructive sleep apnea) Priority: Secondary Status: Acute (7) DVT prophylaxis Priority: Secondary Status: Acute - Discharge Medications Prescriptions: PredniSONE 40 mg PO BIDWM #23 tablet Home Medications: Aspirin 81 mg PO DAILY 03/18/16 [History] Atorvastatin Calcium [Lipitor] 20 mg PO DAILY 03/18/16 [History] Buspirone HCl [Buspar] 15 mg PO DAILY 03/18/16 [History] Finasteride [Proscar] 5 mg PO DAILY 03/18/16 [History] Multivits,Ca,Min/Iron/FA/Lycop [Centrum Ultra Men's Tablet] 1 each PO DAILY [History] Omeprazole Magnesium [Prilosec Otc] 20 mg PO DAILY 03/18/16 [History] Paroxetine HCl [Paroxetine Cr] 50 mg PO DAILY 03/18/16 [History] Pramipexole [Mirapex] 0.25 mg PO DAILY 03/18/16 [History] Psyllium Husk [Metamucil] 3.12 gm PO DAILY 03/18/16 [History] Tamsulosin [Flomax] 0.4 mg PO DAILY 03/18/16 [History] PredniSONE 40 mg PO BIDWM #23 tablet 03/20/16 [Rx] Allergies/Adverse Reactions: Allergies RAYSHAWN Inhibitors Allergy (Verified 03/20/16 10:32) Swelling of Lip/Tongue/Throat Date of admission: 03/18/16 11:36 Primary care physician: Mary Kate Fan MD Consults: 03/18/16 13:07 Consult to Respiratory Therapy [CONS] Routine Reason for Consult: CPAP- patient may use home machine and settings Time Notified: 13:08 Call Completed: No 03/18/16 18:19 Consult to Nephrology [CONS] Routine Consulting Provider: [facility] Dere[facility] GREGORY Reason for Consult: SONU- called in ED Time Notified: 10:00 Call Completed: No Discharging clinician: Korey Pulliam Anticipated date of discharge: 03/20/16 - Patient Status Disposition: Home, Self-Care Condition: Fair Functional capacity at discharge: independent ambulation Overall status at discharge: patient is progressing back to baseline - Discharge Instructions Follow Up With: Mary Kate Fan MD [Primary Care Provider] - 03/26/16 10:20 am Additional Instructions: Take prednisone taper as instructed completely entire taper. Avoid lisinopril as this has induced angioedema. Follow-up with your primary care physician in next 3-5 days. If you develop recurring rash, swelling or trouble breathing, wheezing, swelling of the lips face mouth or throat I recommended being seen in the emergency department immediately. - Diet and Activity Activity: increase activity as tolerated Diet: advance to your usual diet Interval History: Mr. Pearce 55-year-old male was admitted to [facility] with swelling of his arms lips and face that has been progressing for a few days. He was admitted with concerns for angioedema and was found to have acute kidney injury and metabolic acidosis. He is provided high-dose steroids and Benadryl with improvement in his facial swelling lips and extremity swelling. His Uticaric rash that was diffusely over his trunk and sides, arms significantly improved throughout his inpatient stay. He was started on IV normal saline at 150 an hour which improved his acute kidney injury. Nephrology was consult that and had evaluated the patient. It is suspected that he developed angioedema secondary to his RAYSHAWN inhibitor as he denies any new changes, new foods, exposures outside of his normal home. On 03/19/2016 he was switched to by mouth prednisone and his fluids to continued to infuse. That evening he had bilateral pitting edema of his upper extremities. IV fluids were discontinued he was provided steroids at that time. It is suspected that his upper extremity edema was related to fluid. He continued to improve overnight, renal function and kidneys to improve. On 03/20/2016 patient had been seen and evaluated the patient bedside, his rash is greatly improved he had mild edema of his hands, airway and lung examination was clear of any concerning findings. He was deemed stable for discharge with close follow-up with his primary care physician. It was discussed with the patient that if he has any reoccurrence of his symptoms such as facial, lips, neck or extremity swelling that he should be seen immediately in the emergency room. I also recommended that if he has any acute shortness of breath, wheezing, trouble breathing or swelling in his mouth or airway or has trouble eating or swallowing that he should be seen immediately in the emergency department for reevaluation. It was also recommended that he complete his prednisone taper as prescribed and follow-up with his primary care physician. Mr. Pearce demonstrated understanding and agreement to this plan. Hospital course: Mr. Pearce is a 55 year old male - Time Spent with Patient Total time spent providing and/or coordinating discharge services: - Constitutional Vitals: Temp Pulse Resp BP Pulse Ox 97.8 F 79 15 140/96 96 03/20/16 11:05 03/20/16 11:05 03/20/16 11:05 03/20/16 11:05 03/20/16 11:05 General appearance: Present: cooperative, A&O X 3, pleasant, no acute distress, obese, answers questions appropriately - Head Head exam: Present: atraumatic, normocephalic - Eye Eye exam: Present: PERRL, conjuntiva pink, sclera anicteric Pupils: Present: PERRL - ENT ENT exam: Present: mucous membranes moist Additional comments: No erythema or edema of the oral cavity or posterior oral pharynx. - Neck Neck exam general surgery: Present: supple, trachea midline. Absent: lymphadenopathy - Respiratory Respiratory exam: Present: CTAB. Absent: accessory muscle use, rales, rhonchi, wheezes - Cardiovascular Cardiovascular exam: Present: RRR, +S1, +S2. Absent: diastolic murmur, gallop, rubs, systolic murmur - GI/Abdominal GI/Abdominal exam: Present: normal bowel sounds, soft, no peritoneal signs. Absent: distended, tenderness - Extremities Exam Extremities exam: Present: warm, radial pulses palpable and symetrical. Absent : calf tenderness, cyanotic, pedal edema Additional comments: Bilateral 1+ pitting edema of the distal upper extremities bilateral. Improving Uticaric rash of the left upper extremity and bilateral flanks. - Back Exam Back exam: Present: normal inspection - Neurological Exam Neurological exam: Present: alert, CN II-XII intact, oriented X3, no focal deficits. Absent: pronater drift, facial droop, speech deficit - Psychiatric Psychiatric exam: Present: normal affect, normal mood <Memo Su - Last Filed: 03/20/16 11:57> Date of Encounter: 03/20/16 - Discharge Diagnosis (1) Angioedema Status: Acute Qualifiers: Encounter type: subsequent encounter Qualified Code(s): T78.3XXD - Angioneurotic edema, subsequent encounter (2) Hives of unknown origin Status: Acute (3) Hypertension Status: Acute Qualifiers: Hypertension type: essential hypertension Qualified Code(s): I10 - Essential (primary) hypertension (4) FRIDA (obstructive sleep apnea) Status: Acute (5) Acute kidney injury Status: Acute Date of admission: 03/18/16 11:36 Primary care physician: Mary Kate Fan MD Consults: 03/18/16 13:07 Consult to Respiratory Therapy [CONS] Routine Reason for Consult: CPAP- patient may use home machine and settings Time Notified: 13:08 Call Completed: No 03/18/16 18:19 Consult to Nephrology [CONS] Routine Consulting Provider: [facility] COLT Reason for Consult: SONU- called in ED Time Notified: 10:00 Call Completed: No Hospital course: Mr. Pearce is a 55 year old male - Time Spent with Patient Total time spent providing and/or coordinating discharge services: 35min - Constitutional Vitals: Temp Pulse Resp BP Pulse Ox 97.8 F 79 15 140/96 96 03/20/16 11:05 03/20/16 11:05 03/20/16 11:05 03/20/16 11:05 03/20/16 11:05 - Attending Attestation I examined this patient and my medical decision-making was reviewed with the Resident Physician on 03/20/16. I agree with the documented findings, disposition and treatment plan as described except to the extent set forth below. Mr. Pearce had some swelling last evening. Swelling was in both of his arms and worse in the arm with the IV. Has improved some with elevation. No new rash. No difficulty breathing. Lip swelling improved. Exam alert. Comfortable RUE with edema - IV in place LUE with slight edema No wheeze Lip swelling improved. No tongue swelling. Plan D/C today on PO Prednisone taper Instructed to return if worsens or new symptoms No RAYSHAWN inhibitors (added to allergy list) Follow up with PCP. If persists or recurs need physician allergist immunologist appointment.
== END 2016-03-20 13:15 | disposition home or self-care (01) | DRG 916 ==
LOC: 2NENU 08:44 → EMEROO 08:44 → 2NENU 11:14
PROVIDERS: ADMIT Nurse Practitioner Acute Care; ATTEND Internal Medicine